=== PATIENT | female | born 1980 | race Caucasian/White ===

== ENCOUNTER 2018-02-04 10:59 | Day surgery (SDC) | payer OTHER ==
[~2018-02-04 10:59] MED LIST: ALPR0.5T6 PO; BUPIVAC MPF-EPI 0.5%-1:200000 30 ML VIAL. ONE; ESCITALOPRAM OX10 MG PO; LAMO100T PO; NEOMY/BACITR/POLYMYXIN OINT PACKET. TP ONE
[2018-02-04] MEDS ORDERED: IV RINGERS,LACTATED 1000ML 1,000 ML IV SCH ×2 (11:45→14:39)
[2018-02-04] MEDS ORDERED: MIDAZOLAM HCL/PF 2 MG/2 ML VIAL. ONE (12:42)
[2018-02-04] MEDS ORDERED: KETOROLAC 30 MG/ML INJ FOR OR. INJ ONE (12:42)
[2018-02-04] MEDS ORDERED: LIDOCAINE 2% PF Vial for OR 5 ML VIAL. ONE (12:42)
[2018-02-04] MEDS ORDERED: SEVOFLURANE 61 TO 120 MINUTES. IH ONE (12:42)
[2018-02-04] MEDS ORDERED: PROPOFOL 20 ML IV ONE (12:42)
[2018-02-04] MEDS ORDERED: fentaNYL PF VIAL 100 MCG/2 ML VIAL ONE ×2 (12:42→14:38)
[2018-02-04] MEDS ORDERED: ONDANSETRON PF 4 MG/2 ML VIAL. ONE (12:43)
[2018-02-04] MEDS ORDERED: DEXAMETHASONE SOD PHOS 20 MG/5 ML VIAL. ONE (12:43)
[2018-02-04] MEDS ORDERED: BUPIVACAINE MPF 0.25% 30 ML VIAL. IJ ONE (13:46)
[2018-02-04] MEDS ORDERED: NEOMY/BACITR/POLYMYXIN OINT PACKET. TP ONE (13:53)
--- NOTE | 2018-02-04 13:56 | PDOC4 ---
Operative Note Operative Note Date: 02/04/2018 Preoperative diagnosis: Thrombosed hemorrhoids Postoperative diagnosis: Same Procedure: Hemorrhoidectomy Surgeon: Salbador Specimen: Hemorrhoids Dictation: Patient is a 37-year-old female who seen in the office with severe rectal pain on exam she was found to have several thrombosed enlarged bleeding hemorrhoids the procedure hemorrhoidectomy was explained to the patient in detail discussed including bleeding and infection alternatives to this procedure also discussed with the patient seemed to understand able for one written consent had the procedure performed. Patient was taken to the operating room placed in supine position general anesthesia was initiated once patient was asleep and intubated her legs were then placed in stirrups for lithotomy position and her perineum was prepped and draped usual sterile fashion using Betadine scrub and solution. Area around the hemorrhoids were injected with quarter percent Marcaine with epinephrine to hemorrhoid piles were excised by grasping with an Allis clamp and using the LigaSure device to cauterize and transect the hemorrhoid. Hemostasis deemed be appropriate and the wounds were dressed with antibiotic ointment 4 x 4's and mesh panties. Patient was wakened X operative arm taken to recovery in stable condition all sponge instrument needle counts was described as correct estimate blood loss 10 mL. LOGAN DO MD Feb 04, 2018 13:56
--- NOTE | 2018-02-04 13:57 | DISCH ---
DISCHARGE INSTRUCTIONS Condition on Discharge Condition on Discharge: Stable Activity After Discharge Activity Instructions for Disc: Avoid exertion Diet after Discharge Diet after Discharge: Regular Wound Incision Care Other wound/incision instructi: May shower in 24 hours Contacting the after DC Call your doctor for: If your condition worsens Follow-Up Follow up with: Dr. Do in 2 weeks LOGAN DO MD Feb 04, 2018 13:57
[2018-02-04] MEDS ORDERED: LIDOCAINE 1% PF 2 ML VIAL. ID PRN (14:45)
[2018-02-04] MEDS ORDERED: fentaNYL PF VIAL 100 MCG/2 ML VIAL IV PRN ×2 (14:45)
[2018-02-04] MEDS ORDERED: PROCHLORPERAZINE 10 MG/2 ML VIAL. IV PRN (14:45)
[2018-02-04] MEDS ORDERED: oxyCODONE/APAP 5/325 1 TAB TABLET PO ONE (15:15)
[2018-02-04] MEDS ORDERED: OXYC1TAB15 PO ×2 (15:23→15:24)
[2018-02-04 15:40] VITALS: BP 114/68
--- NOTE | 2018-02-08 18:07 | PATHOLOGY ---
[facility] Accession Number: [id number] . 01 Material submitted: . HEMORRHOID . 01 Clinical history: . Hemorrhoids . 02 Diagnosis: Segments of skin and squamous mucosa and underlying soft tissue, hemorrhoidectomy: - Hemorrhoids, with focal thrombosis and early organization, and with focal superficial ulceration and acute inflammation. LBQ/02/08/2018 . 02 Comment: There is no evidence of malignancy. (JPM/db; 02/08/2018) . 02 Electronically signed: . Chai Case MD, Pathologist NPI- [id number] . 01 Gross description: . The specimen is received in formalin, labeled "Katina Burk, hemorrhoid" and consists of 4 segments of epithelial covered munguia-cooley tissue measuring 3.8 x 2.0 x 1.0 cm in aggregate. Sectioning reveals each to have dilated vascular spaces containing blood clot. [employer] sections are submitted in A1. (SDY; 02/05/2018) SYU/SYU . 02 Pathologist provided ICD-10: K64.8 . 02 CPT . 152978 Specimen Comment: A courtesy copy of this report has been sent to Specimen Comment: [phone]. Specimen Comment: Report sent to Performed at: 01 [facility] [address], [place], [place] [id number] MD Wilbur Cedeño MD Phone: [phone] Performed at: 02 [facility] [address], [place] [id number] MD Chai Case MD Phone: [phone]
== END 2018-02-04 15:45 | disposition home or self-care (01) ==
LOC: SURG 10:59
PROVIDERS: ATTEND Surgery
DX: K64.5 Perianal venous thrombosis (principal); K62.89 Other specified diseases of anus and rectum; M79.9 Soft tissue disorder, unspecified; Z79.899 Other long term (current) drug therapy; Z98.890 Other specified postprocedural states; Z90.710 Acquired absence of both cervix and uterus; Z98.51 Tubal ligation status; Z87.891 Personal history of nicotine dependence; Z88.8 Allergy status to other drugs, medicaments and biological substances
CPT/HCPCS: 46930; 88304; A7015; J0690; J1100; J1885; J2001; J2250; J2405; J2704; J3010; J3490; A4461